=== PATIENT | female | born 1980 | race Caucasian/White ===

== ENCOUNTER 2018-01-08 08:11 | Day surgery (SDC) | payer OTHER ==
[~2018-01-08 08:11] MED LIST: CIPRO500 MG PO; PERCOCET 5/3251 TAB PO; RECTICARE30 GM TP
== END 2018-01-08 12:55 | disposition home or self-care (01) ==
LOC: AMB-ENDOS 08:11
DX: K57.30 Diverticulosis of large intestine without perforation or abscess without bleeding (principal); K64.8 Other hemorrhoids